=== PATIENT | female | born 1930 | race Caucasian/White ===

== ENCOUNTER 2019-07-25 17:28 | Inpatient (IN) | payer MEDICARE ==
[2019-07-25] MEDS ORDERED: IOVERSOL 320 100 ML VIAL IVP ONE (17:46)
--- NOTE | 2019-07-25 17:56 | ED Physician Documentation ---
PD HPI ALTERED MENTAL STATUS - Stated complaint Stated Complaint: LT FACIAL DROOPING,WORD FINDING DIFFICULTY - Chief complaint Chief Complaint: Neuro - History obtained from History obtained from: Patient, Family - History of Present Illness Timing - onset: Today Quality / character: Confused Associated symptoms: No: Fever, Headache, Stiff neck, Dyspnea, Cough Contributing factors: No: Anticoagulated Basline status: Alert and oriented X 3 - Additional information Additional information: Patient is an 89-year-old female who presents to the emergency department after being brought in by family today. When the family spoke to her on the phone approximately 1 hour prior to arrival. She was "talking gibberish" and not making any sense. She was last seen normal last night. She has a right-sided facial infection that she was started on clindamycin for 2 days ago. Family states that the redness and swelling have increased on the right side of the face and is now coming down the neck. Unknown if she has had any fevers. Patient unable to give any history. No history of stroke or TIA. Review of Systems Unable to obtain: AMS, Confused PD PAST MEDICAL HISTORY - Past Medical History Past Medical History: Yes Cardiovascular: Hypertension, High cholesterol - Allergies Allergies/Adverse Reactions: Allergies Allergy/AdvReac Type Severity Reaction Status Date / Time Penicillins Allergy Unknown Verified 07/25/19 17:32 - Living Situation Living Arrangement: reports: At home - Social History Does the pt smoke?: No Does the pt have substance abuse?: No - Family History Family history: reports: Non contributory PD ED PE NORMAL - Vitals Vital signs reviewed: Yes - General General: No acute distress, Well developed/nourished, Other (Alert, not oriented to person place or time) - HEENT HEENT: PERRL, Moist mucous membranes, Pharynx benign, Other (Erythema and swelling to the right side of the face going down the neck. No Ludewig's angina. Small palpable nodule to the right upper mandible.) - Neck Neck: Supple, no meningeal sign - Cardiac Cardiac: RRR - Respiratory Respiratory: No respiratory distress, Clear bilaterally - Abdomen Abdomen: Soft, Non tender, Non distended - Derm Derm: Warm and dry - Neuro Neuro: No motor deficit, No sensory deficit, Other (Alert) Eye Opening: Spontaneous Motor: Obeys Commands Verbal: Confused GCS Score: 14 - Psych Psych: Normal mood, Normal affect NIHSS - Time Time: 17:55 - Level of Consciousness Level of consciousness: (0) Alert, Keenly responsive LOC Questions: (2) Answers neither correct LOC Commands: (0) Performs both correctly - Gaze Best Gaze: (0) Normal - Visual Visual: (0) No loss - Facial Palsy Facial Palsy: (0) Normal, symmetrical movement - Motor Arms (both separate) Motor Arm (right): (0) No drift Motor Arm (left): (0) No drift - Motor Legs (both separate) Motor Leg (right): (0) No drift Motor Leg (left): (0) No drift - Limb Ataxia Limb Ataxia: (0) Absent - Sensory Sensory: (0) Normal - Best Language Best Language: (0) No aphasia - Dysarthria Dysarthria: (0) Normal - Extinction and Inattention (formally neg Extinction and inattention: (0) No abnormality - Total Score/Results Total Score/Result: 2 Results - Vitals Vitals: Vital Signs - 24 hr 07/25/19 07/25/19 07/25/19 17:33 18:13 18:30 Temperature 37.0 C 37.2 C Heart Rate 94 98 95 Respiratory 16 16 18 Rate Blood Pressure 192/82 H 155/102 H 167/81 H O2 Saturation 94 96 96 07/25/19 07/25/19 07/25/19 19:00 19:38 20:09 Temperature Heart Rate 102 H 91 94 Respiratory 28 H 15 15 Rate Blood Pressure 167/81 H 179/79 H 185/83 H O2 Saturation 96 96 94 07/25/19 20:41 Temperature Heart Rate 94 Respiratory 21 Rate Blood Pressure 185/79 H O2 Saturation 93 Oxygen O2 Source Room air - Labs Labs: Laboratory Tests 07/25/19 07/25/19 07/25/19 18:17 18:25 18:25 WBC 8.5 RBC 3.17 L Hgb 10.0 L Hct 31.2 L MCV 98.4 MCH 31.5 H MCHC 32.1 RDW 13.2 Plt Count 248 MPV 9.5 Neut # (Auto) 5.1 Lymph # (Auto) 1.7 [place] # (Auto) 1.2 H Eos # (Auto) 0.4 Baso # (Auto) 0.1 Absolute Nucleated RBC 0.00 Nucleated RBC % 0.0 PT 13.3 H INR 1.2 APTT 27.2 Sodium Potassium Chloride Carbon Dioxide Anion Gap BUN Creatinine Estimated GFR (MDRD) Glucose POC Whole Bld Glucose 103 H Lactic Acid Calcium Total Bilirubin AST ALT Alkaline Phosphatase Total Protein Albumin Globulin Albumin/Globulin Ratio Lipase Urine Color Urine Clarity Urine pH Ur Specific [place] Urine Protein Urine Glucose (UA) Urine Ketones Urine Occult Blood Urine Nitrite Urine Bilirubin Urine Urobilinogen Ur Leukocyte Esterase Urine RBC Urine WBC Urine WBC Clumps Ur Squamous Epith Cells Urine Bacteria Ur Microscopic Review Urine Culture Comments Salicylates Urine Opiates Screen Ur Oxycodone Screen Urine Methadone Screen Ur Propoxyphene Screen Acetaminophen Ur Barbiturates Screen Ur Tricyclics Screen Ur Phencyclidine Scrn Ur Amphetamine Screen U Methamphetamines Scrn U Benzodiazepines Scrn Urine Cocaine Screen U Cannabinoids Screen Ethyl Alcohol 07/25/19 07/25/19 07/25/19 18:25 18:25 19:04 WBC RBC Hgb Hct MCV MCH MCHC RDW Plt Count MPV Neut # (Auto) Lymph # (Auto) [place] # (Auto) Eos # (Auto) Baso # (Auto) Absolute Nucleated RBC Nucleated RBC % PT INR APTT Sodium 136 Potassium 3.9 Chloride 101 Carbon Dioxide 25 Anion Gap 10.0 BUN 25 H Creatinine 0.9 Estimated GFR (MDRD) 59 L Glucose 113 H POC Whole Bld Glucose Lactic Acid 0.9 Calcium 9.0 Total Bilirubin 0.7 AST 22 ALT 18 Alkaline Phosphatase 82 Total Protein 7.4 Albumin 3.7 Globulin 3.7 Albumin/Globulin Ratio 1.0 Lipase 37 Urine Color YELLOW Urine Clarity CLEAR Urine pH 7.0 Ur Specific [place] 1.010 Urine Protein NEGATIVE Urine Glucose (UA) NEGATIVE Urine Ketones NEGATIVE Urine Occult Blood SMALL H Urine Nitrite NEGATIVE Urine Bilirubin NEGATIVE Urine Urobilinogen 0.2 (NORMAL) Ur Leukocyte Esterase NEGATIVE Urine RBC 11-25 H Urine WBC 4-5 Urine WBC Clumps PRESENT Ur Squamous Epith Cells RARE Squamous Urine Bacteria Rare Ur Microscopic Review INDICATED Urine Culture Comments NOT INDICATED Salicylates < 6.0 Urine Opiates Screen NEGATIVE Ur Oxycodone Screen NEGATIVE Urine Methadone Screen NEGATIVE Ur Propoxyphene Screen NEGATIVE Acetaminophen < 10 L Ur Barbiturates Screen NEGATIVE Ur Tricyclics Screen NEGATIVE Ur Phencyclidine Scrn NEGATIVE Ur Amphetamine Screen NEGATIVE U Methamphetamines Scrn NEGATIVE U Benzodiazepines Scrn NEGATIVE Urine Cocaine Screen NEGATIVE U Cannabinoids Screen NEGATIVE Ethyl Alcohol < 5.0 - Rads (name of study) CT head Radiology: Prelim report reviewed, EMP read contemporaneously, See rad report (Generalized age-related cortical atrophic changes without evidence of acute intracranial abnormality. ASPECTS 10. ) CT maxillofacial Radiology: Prelim report reviewed, EMP read contemporaneously, See rad report (1. Rim-enhancing hypodense collection adjacent the right alveolar reach measuring 19 x 4.7 x 13.6 mm (series 3 image 62, series 5 image 24), concerning for soft tissue abscess. Mild overlying soft tissue edema and inflammatory change. 2. The soft tissue abscess is likely odontogenic, given periapical lucency associated with adjacent maxillary tooth #5 (series 5 image 28), concerning for periapical abscess. Maxillary teeth 6 and 11 bilateral impacted (series 5 image 21). ) CT angio head Radiology: Prelim report reviewed, EMP read contemporaneously, See rad report CT angiogram neck Radiology: Prelim report reviewed, EMP read contemporaneously, See rad report PD MEDICAL DECISION MAKING - ED course Complexity details: reviewed results, re-evaluated patient, considered differential, d/w patient, d/w pre owned sales consultant ED course: Patient with dental abscess with significant facial cellulitis extending down to the neck. Has been on antibiotics for 2 days and is steadily worsening. Now with altered mental status. Has a UTI as well. No focal neurological deficits. Discussed the case with neurology, they recommend starting aspirin daily and obtaining an MRI on Friday when it is available here. Discussed with Dr. Ochoa, neurology at [facility]. Also discussed the case with Dr. Lemus, oral maxillofacial surgery who will come to the hospital and see the patient for the dental infection and abscess. Discussed the case with Dr. Garcia, hospitalist who accepts. She will need admission for altered mental status, complicated UTI, failed outpatient oral antibiotics with worsening cellulitis of the face ex tending down to the clavicle on the right side. This document was made in part using voice recognition software. While efforts are made to proofread this document, sound alike and grammatical errors may occur. Departure - Departure Disposition: [facility] DC/Xfer Clinical Impression: Facial cellulitis, Dental abscess Altered mental status Qualifiers: Altered mental status type: disorientation Qualified Code(s): R41.0 - Disorientation, unspecified UTI (urinary tract infection) Qualifiers: Urinary tract infection type: acute cystitis Hematuria presence: without hematuria Qualified Code(s): N30.00 - Acute cystitis without hematuria Condition: Stable Discharge Date/Time: 07/25/19 21:30
--- NOTE | 2019-07-25 18:29 | CT Report ---
Reason: Neuro deficit, acute, stroke suspected Procedure Date: 07/25/2019 Accession Number: [id number] / [id number] Procedure: CT - Head W/O Stroke Protocol CPT Code: Addended Final Report FULL RESULT: EXAM: CT HEAD EXAM DATE: 07/25/2019 05:59 PM. CLINICAL HISTORY: 89-year-old female. Altered mental status right facial swelling. Neuro deficit, acute, stroke suspected. COMPARISON: None. TECHNIQUE: Multiaxial CT images were obtained from the foramen magnum to the vertex. Reformats: Sagittal and coronal. IV contrast: None. In accordance with CT protocol optimization, one or more of the following dose reduction techniques were utilized for this exam: automated exposure control, adjustment of mA and/or KV based on patient size, or use of iterative reconstructive technique. FINDINGS: Parenchyma: No intraparenchymal hemorrhage. No evidence of mass, midline shift, or CT findings of acute infarction. Villar-white differentiation is distinct. Diffuse chronic microangiopathic white matter changes are evident. Extraaxial Spaces: Normal for age. No subdural or epidural collections identified. Ventricles: The ventricles and cortical sulci are enlarged, consistent with age-related tissue loss. Sinuses and orbits: Imaged paranasal sinuses, orbits, and mastoids show no significant abnormality. Bones: No evidence of fracture or calvarial defect. Other: None. IMPRESSION: Generalized age-related cortical atrophic changes without evidence of acute intracranial abnormality. ASPECTS 10. RADIA The critical test notification system was initiated by Dr. Quentin Haro at 06:27 PM on 07/25/2019. ADDENDUM: 07/25/19 18:31 The above critical test findings were discussed with Luis Upton by Dr. Quentin Haro at 06:31 PM on 07/25/2019.
[2019-07-25 18:30] LABS: BASOPHILS # (AUTO) 0.1 10^3/uL (0.0-0.1); BASOPHILS % (AUTO) 1.1 %; EOSINOPHILS # (AUTO) 0.4 10^3/uL (0.0-0.7); EOSINOPHILS % (AUTO) 4.2 %; LYMPHOCYTES # (AUTO) 1.7 10^3/uL (1.5-3.5); LYMPHOCYTES % (AUTO) 20.3 %; MEAN CORPUSCULAR HEMOGLOBIN 31.5 pg (27.0-31.0); MEAN CORPUSCULAR HGB CONC 32.1 g/dL (32.0-36.0); MEAN CORPUSCULAR VOLUME 98.4 fL (81.0-99.0); MEAN PLATELET VOLUME 9.5 fL (7.9-10.8); MONOCYTES # (AUTO) 1.2 10^3/uL (0.0-1.0); MONOCYTES % (AUTO) 13.9 %; NEUTROPHILS # (AUTO) 5.1 10^3/uL (1.5-6.6); NEUTROPHILS % (AUTO) 59.8 %; PLT - PLATELET COUNT 248 10^3/uL (130-450); RED BLOOD COUNT 3.17 10^6/uL (4.20-5.40); RED CELL DISTRIBUTION WIDTH 13.2 % (12.0-15.0); WHITE BLOOD COUNT 8.5 x10^3/uL (4.8-10.8)
[2019-07-25 18:36] LABS: INR 1.2 (0.8-1.2); PT - PROTHROMBIN TIME 13.3 secs (9.9-12.6)
[2019-07-25 18:43] LABS: PARTIAL THROMBOPLASTIN TIME 27.2 secs (24.9-33.3)
[2019-07-25 18:44] LABS: ACETAMINOPHEN < 10 ug/mL (10-30); ALBUMIN 3.7 g/dL (3.2-5.5); ALKALINE PHOSPHATASE 82 IU/L (42-121); ALT ALANINE AMINOTRANSFERASE 18 IU/L (10-60); AST ASPARTATE AMINOTRANSFERASE 22 IU/L (10-42); BILIRUBIN,TOTAL 0.7 mg/dL (0.2-1.0); BUN - BLOOD UREA NITROGEN 25 mg/dL (6-20); CARBON DIOXIDE - CO2 25 mmol/L (21-32); CHLORIDE 101 mmol/L (101-111); CREATININE 0.9 mg/dL (0.4-1.0); GLUCOSE 113 mg/dL (70-100); LIPASE 37 U/L (22-51); SALICYLATE < 6.0 mg/dL; SODIUM 136 mmol/L (135-145); TOTAL PROTEIN 7.4 g/dL (6.7-8.2)
--- NOTE | 2019-07-25 18:49 | CT Report ---
Reason: R facial swelling Procedure Date: 07/25/2019 Accession Number: [id number] / [id number] Procedure: CT - MAXILLOFACIAL W CPT Code: Final Report FULL RESULT: EXAM: CT MAXILLOFACIAL WITH CONTRAST EXAM DATE: 07/25/2019 06:24 PM. CLINICAL HISTORY: 89-year-old female. R facial swelling. COMPARISONS: None. TECHNIQUE: Thin-section axial images were acquired of the face after administration of intravenous contrast. Post-processing: Coronal and sagittal reformats. Other: None. IV contrast: 80 mL OPTIRAY 320. In accordance with CT protocol optimization, one or more of the following dose reduction techniques were utilized for this exam: automated exposure control, adjustment of mA and/or KV based on patient size, or use of iterative reconstructive technique. FINDINGS: Soft Tissue: Rim-enhancing hypodense collection adjacent the right alveolar reach measuring 19 x 4.7 x 13.6 mm (series 3 image 62, series 5 image 24), concerning for soft tissue abscess. Mild overlying soft tissue edema and inflammatory change. No soft tissue mass. The infratemporal fossa and parapharyngeal spaces are unremarkable. Orbits: Status post bilateral lens replacement surgery. The visualized orbits otherwise unremarkable. Bones: No evidence of acute fracture. Maxillary teeth 6 and 11 bilateral impacted (series 5 image 21). Periapical lucency associated with maxillary tooth #5 (series 5 image 28), concerning for periapical abscess. Temporomandibular Joints: The temporomandibular joints are symmetric and normally located. Sinuses: Normal. No mucosal thickening or fluid levels. Glands: The parotid and submandibular glands are unremarkable. Other: None. IMPRESSION: 1. Rim-enhancing hypodense collection adjacent the right alveolar reach measuring 19 x 4.7 x 13.6 mm (series 3 image 62, series 5 image 24), concerning for soft tissue abscess. Mild overlying soft tissue edema and inflammatory change. 2. The soft tissue abscess is likely odontogenic, given periapical lucency associated with adjacent maxillary tooth #5 (series 5 image 28), concerning for periapical abscess. Maxillary teeth 6 and 11 bilateral impacted (series 5 image 21). RADIA
--- NOTE | 2019-07-25 19:02 | CT Report ---
Reason: altered mental status Procedure Date: 07/25/2019 Accession Number: [id number] / [id number] Procedure: CT - ANGIO HEAD W/WO CPT Code: Final Report FULL RESULT: EXAM: CT ANGIOGRAM HEAD AND NECK. CT SCAN HEAD WITH CONTRAST. EXAM DATE: 07/25/2019 06:21 PM. CLINICAL HISTORY: Altered mental status. COMPARISON: ANGIO NECK W 07/25/2019 5:59 PM. TECHNIQUE: Routine axial helical CTA imaging was performed from the aortic arch through the [place]. Routine axial CT imaging of the head was performed following contrast administration. Reconstructions: Routine multiplanar 3D MIP reconstructions. IV contrast: 80 mL OPTIRAY 320. NASCET Criteria are used for stenosis measurements. In accordance with CT protocol optimization, one or more of the following dose reduction techniques were utilized for this exam: automated exposure control, adjustment of mA and/or KV based on patient size, or use of iterative reconstructive technique. FINDINGS: CT SCAN HEAD: Noncontrast CT head dictated separately. No abnormal enhancement on the postcontrast CT head. CT ANGIOGRAM EXTRACRANIAL CIRCULATION: Moderate atherosclerosis aortic arch, no hemodynamically significant narrowing. 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 Right Carotid: The common carotid, internal carotid, and external carotid arteries are widely patent. No dissection, significant atherosclerotic plaque, or calcification identified. Partially retropharyngeal course of the cervical right ICA. Left Carotid: Mild atherosclerosis left carotid bifurcation, no hemodynamically significant narrowing. The common carotid, internal carotid, and external carotid arteries are widely patent. No dissection, significant atherosclerotic plaque, or calcification identified. Vertebrals: Focal atherosclerosis V4 segments of the vertebral arteries bilaterally, maximal narrowing approximately 30-40%. The proximal V2 segment of the right vertebral artery is tortuous and somewhat irregular in contour. The vertebrobasilar system is otherwise unremarkable. CT ANGIOGRAM INTRACRANIAL CIRCULATION: RIGHT: Internal Carotid artery: Moderate atherosclerosis right carotid siphon, maximal narrowing approximately 50%. Anterior Cerebral Artery: Patent without significant stenosis, aneurysm, or vascular malformation. Middle Cerebral Artery: Patent without significant stenosis, aneurysm, or vascular malformation. Posterior Cerebral Artery: Patent without significant stenosis, aneurysm, or vascular malformation. Posterior Communicating Artery: Patent without significant stenosis, aneurysm, or vascular malformation. LEFT: Internal Carotid artery: Moderate atherosclerosis left carotid siphon, maximal narrowing approximately 50%. Anterior Cerebral Artery: Patent without significant stenosis, aneurysm, or vascular malformation. Middle Cerebral Artery: Patent without significant stenosis, aneurysm, or vascular malformation. Posterior Cerebral Artery: Patent without significant stenosis, aneurysm, or vascular malformation. Posterior Communicating Artery: Patent without significant stenosis, aneurysm, or vascular malformation. CENTRAL: Anterior Communicating Artery: Patent. No aneurysm. The dural venous sinuses are patent. Other: The visualized lung apices are clear. Mild to moderate multilevel degenerative spondylosis, no acute fracture or traumatic subluxation. The visualized soft tissues of the neck demonstrate no acute abnormality. IMPRESSION: CT HEAD: 1. Noncontrast CT head dictated separately. 2. No abnormal enhancement on the postcontrast CT head. CTA NECK: 1. No CTA evidence of high-grade stenosis, large vessel occlusion, acute dissection, aneurysm, or vascular malformation within extracranial arteries. 2. 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 3. Focal atherosclerosis V4 segments of the vertebral arteries bilaterally, maximal narrowing approximately 30-40%. 4. The proximal V2 segment of the right vertebral artery is tortuous and somewhat irregular in contour. This is nonspecific for sequela of atherosclerosis versus age-indeterminate nonocclusive dissection. CTA HEAD: 1. No CTA evidence of high-grade stenosis, large vessel occlusion, aneurysm, or vascular malformation within intracranial arteries. 2. Moderate atherosclerosis right carotid siphon, maximal narrowing approximately 50%. 3. Moderate atherosclerosis left carotid siphon, maximal narrowing approximately 50%. OTHER: 1. No other acute findings. RADIA
[2019-07-25 19:15] LABS: MUDS CUTOFF CONCENTRATIONS CUTOFF CONC BELOW:
[2019-07-25 19:16] LABS: BILIRUBIN,URINE NEGATIVE (NEGATIVE); GLUCOSE, URINE (UA) NEGATIVE (NEGATIVE); KETONES,URINE (UA) NEGATIVE (NEGATIVE); LEUKOCYTE ESTERASE, URINE NEGATIVE (NEGATIVE); NITRITE,URINE NEGATIVE (NEGATIVE); OCCULT BLOOD,URINE SMALL (NEGATIVE); PROTEIN,URINE NEGATIVE (NEGATIVE); UROBILINOGEN,URINE 0.2 (NORMAL) E.U./dL (NORMAL)
[2019-07-25 19:32] LABS: CLARITY,URINE CLEAR (CLEAR)
[2019-07-25 19:33] LABS: BACTERIA,URINE Rare /HPF (None Seen); SQUAMOUS EPITHELIAL CELL,UR RARE Squamous (<= Few); WBC CLUMPS,URINE PRESENT
[2019-07-25] MEDS ORDERED: cefTRIAXone 1 GM VIAL IVP STA (19:34)
[2019-07-25 19:39] LABS: AMPHETAMINE SCREEN,URINE NEGATIVE (NEGATIVE); BENZODIAZEPINES SCREEN, URINE NEGATIVE (NEGATIVE); COCAINE SCREEN URINE NEGATIVE (NEGATIVE); METHADONE SCREEN, URINE NEGATIVE (NEGATIVE); METHAMPHETAMINES SCREEN, URINE NEGATIVE (NEGATIVE); OPIATE SCREEN, URINE NEGATIVE (NEGATIVE); OXYCODONE SCREEN, URINE NEGATIVE (NEGATIVE); PROPOXYPHENE SCREEN, URINE NEGATIVE (NEGATIVE); TRICYCLIC ANTIDEPRESSANT,URINE NEGATIVE (NEGATIVE)
[2019-07-25] MEDS ORDERED: ACETAMINOPHEN 325 MG TABLET PO PRN (21:05)
[2019-07-25] MEDS ORDERED: SODIUM CHLORIDE FLUSH 0.9% 10 ML SYRINGE IVP PRN (21:05)
--- NOTE | 2019-07-25 21:25 | HISTORY & PHYSICAL EXAMINATION ---
Chief Complaint - Chief Complaint Chief Complaint: alteremental status, worsening rednes on right-reese eof face to neck History of Present Illness - Admitted From Admitted From:: [facility] ED - History Obtained From Records Reviewed: yes History obtained from: patient's daughter Exam Limitations: altered mental status - History of Present Illness HPI Comment/Other: Patient is an 89-year-old female who was brought to the ED for altered mental status. The history was mainly obtained from her daughter. Her daughter explains that around 4:30 PM this afternoon she received a call from the patient. During the conversation her words were not making sense. She was babbling and appeared confused. It also seemed the patient was not understanding what her daughter was saying. Upon presentation to the ED the patient had redness on the right side of her face which extended down to the clavicle on the right. She had seen her dentist Rosangela Stubbs on Friday and was prescribed clindamycin for a potential dental abscess. There was nothing drainable at the time. By the time the patient presented to the ED she had taken a total of 4 doses of the clindamycin. On Friday the redness was localized to the right jaw only. Despite being on clindamycin the redness has progressed down to her clavicle on the right side. Though she is fully awake, alert and appears comfortable, she is not able to follow any commands. She is able to tell me her name but does not seem to recognize her daughter at bedside. Work-up in the ED included a CT of the head and neck which suggested a dental abscess. Dr. Lemus with oral surgery was consulted and would see the patient for possible drainage. As a result of her presentation she is being admitted for further work-up and treatment. 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 Daughter2: prediabetic Living arrangement: At home Living Situation: Alone - POLST Patient has POLST: No POLST Status: Full Code Meds/Allgy - Allergies Allergies/Adverse Reactions: Allergies Allergy/AdvReac Type Severity Reaction Status Date / Time Penicillins Allergy Unknown Verified 07/25/19 17:32 Review of Systems - Constitutional Constitutional: denies: Fatigue, Fever, Chills, Weakness - Eyes Eyes: denies: Pain, Vision loss, Dipolpia - Ears, Nose & Throat Ears, Nose & Throat: denies: Vertigo - Cardiovascular Cariovascular: denies: Irregular heart rate, Palpitations, Chest pain, Edema, Lightheadedness, Syncope - Respiratory Respiratory: denies: Cough, Sputum production, Wheezing, SOB at rest, SOB with exertion - Gastrointestinal Gastrointestinal: denies: Abdominal pain, Constipation, Diarrhea, Nausea, Vomiting - Genitourinary Genitourinary: denies: Dysuria, Urgency, Hematuria - Musculoskeletal Musculoskeletal: denies: Muscle pain, Back pain, Muscle aches, Stiffness - Integumentary Integumentary: reports: Rash - Neurological Neurological: denies: General weakness, Focal weakness, Headache, Dizziness - Psychiatric Psychiatric: reports: Anxiety - Endocrine Endocrine: denies: Polyuria, Polydypsia - Hematologic/Lymphatic Hematologic/Lymphatic: denies: Anemia, Bruising, Petechiae Prior Level of Functionality: Patient lives alone. Her daughter lives nearby and assists with preparing meals and with personal cares like showers. Exam - Vital Signs Vital Signs: Vital Signs x48h Temp Pulse Resp BP Pulse Ox 07/25/19 20:41 94 21 185/79 H 93 07/25/19 20:09 94 15 185/83 H 94 07/25/19 19:38 91 15 179/79 H 96 07/25/19 19:00 102 H 28 H 167/81 H 96 07/25/19 18:30 95 18 167/81 H 96 07/25/19 18:13 37.2 C 98 16 155/102 H 96 07/25/19 17:33 37.0 C 94 16 192/82 H 94 - Physical Exam General Appearance: positive: Alert, Mild distress, Other (oriented to self. not able to follow commands. Speech unintelligible.) Eyes Bilateral: positive: PERRL, EOMI ENT: positive: Other (redness from the right jaw don to clavicle) Neck: positive: No JVD, Trachea midline, Other (redness on right side of neck) Respiratory: positive: Chest non-tender, No respiratory distress, Breath sounds nml. negative: Wheezes, Rales, Rhonchi Cardiovascular: positive: Regular rate & rhythm. negative: No murmur Abdomen: positive: Non-tender, No organomegaly, Nml bowel sounds, No distention. negative: Guarding, Rebound Back: positive: Nml inspection Skin: positive: Other (redness on right side of jaw down to the clavicle) Extremities: positive: Non-tender, Full ROM, Nml appearance, No pedal edema Neurologic/Psychiatric: positive: Mood/affect nml, Other (oriented to seelf speech unintelligible) Conclusion/Plan - Problem List (1) Facial cellulitis Conclusion/Plan: This is likely related to dental abscess. Cellulitis progressed from right jaw down to the clavicle despite oral clindamycin. Patient was given a dose of Rocephin in the ED. We will start patient on IV vancomycin and IV clindamycin. Blood cultures pending (2) Dental abscess Conclusion/Plan: Dr. Lemus was consulted and will see the patient for possible drainage how are you (3) Altered mental status Conclusion/Plan: Cannot rule out a CVA. CT brain, CT angiogram head and neck were unremarkable for any acute process. We will do an MRI of the brain without contrast and 2D echo when available. Qualifiers: Altered mental status type: disorientation Qualified Code(s): R41.0 - Disorientation, unspecified (4) Hypertension Conclusion/Plan: On losartan. Will resume once verified. (5) Hyperlipidemia Conclusion/Plan: Patient takes simvastatin at home.Will place patient on atorvastatin while in the hospital. Check lipid panel (6) Hypothyroidism Conclusion/Plan: Will resume patient's Synthroid at home dose. - Lab Results Fish Bones: 07/26/19 05:37 07/26/19 05:37 Core Measures - Anticipated LOS I expect patient to be DC'd or transferred within 96 hours.: Yes - DVT/VTE - Prophylaxis VTE/DVT Device ordered at admit?: Yes
[2019-07-25] MEDS ORDERED: VANCOMYCIN INJ 1 GM in SODIUM CHLORIDE 0.9% 250 ML IV SCH (22:00)
--- NOTE | 2019-07-25 22:51 | CONSULTATION NOTE ---
Referring Provider Name of Referring Provider:: Luis Upton Consult Date: 07/25/19 Chief Complaint - Chief Complaint Chief Complaint: Facial swelling History of Present Illness - Admitted From Admitted From:: ER - History Obtained From Records Reviewed: Yes Exam Limitations: Mental status change - History of Present Illness HPI Comment/Other: Jen is an 89 year old female who was brought to the ER by her daughter because of acute mental status change. On Friday she was seen by Dr. Radha Klein, her dentist, for a tooth in the maxillary right. At that appointment she was given an Rx for clindamycin. She has been taking the clindamycin as scheduled. Her daughter reports that her swelling has improved since yesterday, but she brought her in because today she had an acute change in her mental status, being unable to understand people and unable to speak in full sentences. The ER physician, Dr. Upton, noted that she had erythema of the R infraorbital skin all the way down to the skin overlying the thyroid cartilage. A max/face CT demonstated a radiolucency associated with tooth #5 and an adjacent soft tissue abscess. I was consulted for evaluation and management of this abscess. 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 Daughter2: prediabetic Living arrangement: At home Living Situation: Alone - POLST Patient has POLST: No POLST Status: Full Code Meds/Allgy - Allergies Allergies/Adverse Reactions: Allergies Allergy/AdvReac Type Severity Reaction Status Date / Time Penicillins Allergy Unknown Verified 07/25/19 17:32 Exam - Vital Signs Vital Signs: Vital Signs x48h Temp Pulse Pulse Resp BP BP Pulse Ox 05/24/20 21:48 36.8 C 97 20 152/89 H 94 07/25/19 20:41 94 21 185/79 H 93 07/25/19 20:09 94 15 185/83 H 94 07/25/19 19:38 91 15 179/79 H 96 07/25/19 19:00 102 H 28 H 167/81 H 96 07/25/19 18:30 95 18 167/81 H 96 07/25/19 18:13 37.2 C 98 16 155/102 H 96 07/25/19 17:33 37.0 C 94 16 192/82 H 94 - Physical Exam General Appearance: positive: Mild distress, Anxious ENT: positive: Other (Completely unable to cooperate with exam due to mental status change. ELEONORA wnl. No withdrawal when the R face and neck were palpated. Moderate swelling of the R canine space There is a fluctuant swelling of the R maxillary vestibule that is open and draining spontaneously. A small amount of purulence is present.) Neck: positive: Other (Mild erythema of the R infraorbital skin extending inferiorly onto the neck. No swellig of the submental or submandibular spp. The erythema does not extend onto the chest.) Conclusion/Plan - Diagnosis Diagnosis: Cellulitis and abscess of the R canine space extending onto the R neck - Plan Plan: I attempted bedside incision and drainage. She was unable to tolerate the procedure and withdrew, being confused about what was happening. Thankfully, the abscess is already spontaneously draining. Recommend monitoring her response to IV antibiotics. If she improves significantly, she can follow up with Dr. Guido Alicea for definitive management of her infection. She already intends to make these arrangements. If she does not demonstrate decreased swelling and erythema after IV antibiotics, consider changing antibiotics to a third generation cephalosporin or to Levaquin. I will check in tomorrow regarding her progress. She may need another attempt at I&D while in house if she is progressing slowly. Unless she has increased mental clarity at that time, it will be necessary to give her IV sedation to facilitate cooperation. Thank you for including me in the care of Jen. Please call with any questions. Hung Lemus DDS [phone] - Lab Results Fish Bones: 07/25/19 18:25 07/25/19 18:25
[2019-07-25] MEDS: VANCOMYCIN INJ 1 GM in SODIUM CHLORIDE 0.9% 250 ML IV SCH (22:54)
[2019-07-25] MEDS ORDERED: metroNIDAZOLE 500 MG/100 ML 500 MG/100 ML BAG IV SCH (23:00)
[2019-07-25] MEDS ORDERED: SODIUM CHLORIDE 0.9% 0 ML ONE (23:36)
[2019-07-26] MEDS ORDERED: CLINDAMYCIN 600 MG/50 ML 50 ML IV SCH
[2019-07-26] MEDS: CLINDAMYCIN 600 MG/50 ML 50 ML IV SCH ×4 (00:13→17:06)
[2019-07-26] MEDS: SODIUM CHLORIDE 0.9% 1,000 ML IV SCH ×3 (00:14→22:24)
[2019-07-26] MEDS: SODIUM CHLORIDE FLUSH 0.9% 10 ML SYRINGE IVP SCH ×3 (00:50→17:07)
[2019-07-26 06:07] LABS: BASOPHILS # (AUTO) 0.1 10^3/uL (0.0-0.1); BASOPHILS % (AUTO) 1.4 %; EOSINOPHILS # (AUTO) 0.1 10^3/uL (0.0-0.7); EOSINOPHILS % (AUTO) 1.7 %; HGB - HEMOGLOBIN 9.1 g/dL (12.0-16.0); LYMPHOCYTES # (AUTO) 1.7 10^3/uL (1.5-3.5); LYMPHOCYTES % (AUTO) 22.2 %; MEAN CORPUSCULAR HGB CONC 31.1 g/dL (32.0-36.0); MEAN CORPUSCULAR VOLUME 96.7 fL (81.0-99.0); MEAN PLATELET VOLUME 9.9 fL (7.9-10.8); MONOCYTES # (AUTO) 0.9 10^3/uL (0.0-1.0); MONOCYTES % (AUTO) 11.4 %; NEUTROPHILS # (AUTO) 4.8 10^3/uL (1.5-6.6); NEUTROPHILS % (AUTO) 62.7 %; PLT - PLATELET COUNT 243 10^3/uL (130-450); RED BLOOD COUNT 3.03 10^6/uL (4.20-5.40); RED CELL DISTRIBUTION WIDTH 13.2 % (12.0-15.0); WHITE BLOOD COUNT 7.7 x10^3/uL (4.8-10.8)
[2019-07-26 06:18] LABS: CALCIUM 8.4 mg/dL (8.5-10.3)
[2019-07-26 06:21] LABS: HB2 TOTAL 9.8 g/dL; HEMOGLOBIN A1C 0.49 g/dL; HEMOGLOBIN A1C % 6.7 % (4.6-6.2)
[2019-07-26] MEDS: LEVOTHYROXINE 88 MCG TABLET PO SCH (06:24)
[2019-07-26 06:27] LABS: CHOL/HDL RATIO 2.1 (<4.4); CHOLESTEROL 117 mg/dL; HDL CHOLESTEROL 56 mg/dL; LDL CHOLESTEROL,CALCULATED 48 mg/dL; LDL/HDL RATIO 0.9 (<4.4); VLDL CHOLESTEROL 13 mg/dL
--- NOTE | 2019-07-26 08:28 | PROVIDER PROGRESS NOTE ---
Assessment/Plan - Problem List (1) Sepsis Assessment/Plan: Patient has a persistent fever over 38 degrees C, is tachycardic and an infection, dental, facial cellulitis, which is spreading to the neck. Continue with broad-spectrum antibiotics, iv fluids, [id number] management by Dr Lemus. (2) Facial cellulitis Assessment/Plan: She still has a fever today. Will obtain blood cultures again. Watch the redness outlined area. Continue broad-spectrum IV antibiotics. Await culture results. (3) Dental abscess Assessment/Plan: She still has a fever today. Dr. Lemus input appreciated and he is following along. We will obtain blood cultures. Continue broad-spectrum IV antibiotics. Await culture results. (4) Altered mental status Qualifiers: Altered mental status type: disorientation Qualified Code(s): R41.0 - Disorientation, unspecified Assessment/Plan: She has now had confusion and garbled speech and been altered in mental status for over 12 hours. Stroke was evaluated for by CT of the head yesterday, was neg. Await MRI of the brain (this is not available here until Friday, today is Friday). Watch for nuchal rigidity, concern for spread of the dental and facial infection to her sinuses and CSF, which would warrant a spinal tap (by Anesthesia). Continue hydration, while altered and with a fever. (5) Hypertension Assessment/Plan: Her blood pressure med's will be resumed, with hold orders if blood pressure is low. (6) Hypothyroidism Assessment/Plan: Check TSH. Resume home thyroid dosing, adjust if needed based on TSH. (7) Hyperlipidemia Assessment/Plan: We will hold her statin medication currently because of the altered mental status. - Current Meds Current Meds: Current Medications Generic Name Dose Route Start Last Admin Trade Name Freq PRN Reason Stop Dose Admin Acetaminophen 650 mg 07/25/19 21:05 07/26/19 00:00 Tylenol PO 650 mg Q6HR PRN Administration Pain 1 to 4 Clindamycin Phosphate 50 mls @ 100 mls/hr 07/26/19 00:00 07/26/19 06:21 Cleocin 600 Mg/50 Ml IV 50 mls/hr Q6HR LYNNE Administration Vancomycin HCl 1 gm/ Sodium 250 mls @ 167 mls/hr 07/25/19 22:00 07/26/19 00:24 Chloride IV Infused Q36H LYNNE Infusion Sodium Chloride 1,000 mls @ 100 mls/hr 07/25/19 23:45 07/26/19 00:14 Normal Saline 0.9% IV 100 mls/hr .Q10H LYNNE Administration Levothyroxine Sodium 88 mcg 07/26/19 07:00 07/26/19 06:24 Synthroid PO 88 mcg QDAC LYNNE Administration Sodium Chloride 10 ml 07/26/19 01:00 07/26/19 00:50 Normal Saline Flush 0.9% IVP Not Given 0100,0900,1700 LYNNE - Lab Result Fish Bone Diagrams: 07/26/19 05:37 07/26/19 05:37 Subjective - Subjective Patient Reports: Resting Comfortably Nursing Reports: Other (Still confused, per RN) Objective Vital Signs: Vital Signs - 24 hr 07/25/19 07/25/19 07/25/19 17:33 18:13 18:30 Temperature 37.0 C 37.2 C Heart Rate 94 98 95 Heart Rate [ Brachial] Respiratory 16 16 18 Rate Blood Pressure 192/82 H 155/102 H 167/81 H Blood Pressure [Left Brachial artery] O2 Saturation 94 96 96 07/25/19 07/25/19 07/25/19 19:00 19:38 20:09 Temperature Heart Rate 102 H 91 94 Heart Rate [ Brachial] Respiratory 28 H 15 15 Rate Blood Pressure 167/81 H 179/79 H 185/83 H Blood Pressure [Left Brachial artery] O2 Saturation 96 96 94 07/25/19 07/25/19 07/25/19 20:41 21:48 23:49 Temperature 36.8 C 38.3 C H Heart Rate 94 Heart Rate [ 97 109 H Brachial] Respiratory 21 20 20 Rate Blood Pressure 185/79 H Blood Pressure 152/89 H 174/84 H [Left Brachial artery] O2 Saturation 93 94 95 07/26/19 07/26/19 01:27 04:37 Temperature 37.9 C H 38.1 C H Heart Rate Heart Rate [ 109 H Brachial] Respiratory 20 Rate Blood Pressure Blood Pressure 154/66 H [Left Brachial artery] O2 Saturation 94 Oxygen O2 Source Room air I&O (Last 24 Hrs): Intake and Output Totals x24h 07/24/19 07/25/19 07/26/19 23:59 23:59 23:59 Intake Total 200 400 Output Total 500 Balance 200 -100 General: Other (Appears fatigued) HEENT: Other (minimal swelling and decreased pink-red area on R neck (outlined by RN this morning)) Neck: Supple, Other (As described in HEENT) Neuro: Disoriented Cardiovascular: Regular rate, No murmurs Respiratory: No respiratory distress, Breath sounds nml Abdomen: Soft Extremities: No edema - Results Results: Laboratory Results WBC 7.7 x10^3/uL (4.8-10.8) 07/26/19 05:37 RBC 3.03 10^6/uL (4.20-5.40) L 07/26/19 05:37 Hgb 9.1 g/dL (12.0-16.0) L 07/26/19 05:37 Hct 29.3 % (37.0-47.0) L 07/26/19 05:37 MCV 96.7 fL (81.0-99.0) 07/26/19 05:37 MCH 30.0 pg (27.0-31.0) 07/26/19 05:37 MCHC 31.1 g/dL (32.0-36.0) L 07/26/19 05:37 RDW 13.2 % (12.0-15.0) 07/26/19 05:37 Plt Count 243 10^3/uL (130-450) 07/26/19 05:37 MPV 9.9 fL (7.9-10.8) 07/26/19 05:37 Neut # (Auto) 4.8 10^3/uL (1.5-6.6) 07/26/19 05:37 Lymph # (Auto) 1.7 10^3/uL (1.5-3.5) 07/26/19 05:37 [place] # (Auto) 0.9 10^3/uL (0.0-1.0) 07/26/19 05:37 Eos # (Auto) 0.1 10^3/uL (0.0-0.7) 07/26/19 05:37 Baso # (Auto) 0.1 10^3/uL (0.0-0.1) 07/26/19 05:37 Absolute Nucleated RBC 0.00 x10^3/uL 07/26/19 05:37 Nucleated RBC % 0.0 /100WBC 07/26/19 05:37 PT 13.3 secs (9.9-12.6) H 07/25/19 18:25 INR 1.2 (0.8-1.2) 07/25/19 18:25 APTT 27.2 secs (24.9-33.3) 07/25/19 18:25 Sodium 134 mmol/L (135-145) L 07/26/19 05:37 Potassium 3.7 mmol/L (3.5-5.0) 07/26/19 05:37 Chloride 100 mmol/L (101-111) L 07/26/19 05:37 Carbon Dioxide 25 mmol/L (21-32) 07/26/19 05:37 Anion Gap 9.0 (6-13) 07/26/19 05:37 BUN 21 mg/dL (6-20) H 07/26/19 05:37 Creatinine 1.0 mg/dL (0.4-1.0) 07/26/19 05:37 Estimated GFR (MDRD) 52 (>89) L 07/26/19 05:37 Glucose 123 mg/dL (70-100) H 07/26/19 05:37 POC Whole Bld Glucose 103 mg/dL (70 - 100) H 07/25/19 18:17 Glycated Hemoglobin 6.7 % (4.6-6.2) H 07/26/19 05:37 Estim Average Glucose 146 (70-100) H 07/26/19 05:37 Lactic Acid 0.8 mmol/L (0.5-2.2) 07/26/19 00:00 Calcium 8.4 mg/dL (8.5-10.3) L 07/26/19 05:37 Total Bilirubin 0.7 mg/dL (0.2-1.0) 07/25/19 18:25 AST 22 IU/L (10-42) 07/25/19 18:25 ALT 18 IU/L (10-60) 07/25/19 18:25 Alkaline Phosphatase 82 IU/L (42-121) 07/25/19 18:25 Total Protein 7.4 g/dL (6.7-8.2) 07/25/19 18:25 Albumin 3.7 g/dL (3.2-5.5) 07/25/19 18:25 Globulin 3.7 g/dL (2.1-4.2) 07/25/19 18:25 Albumin/Globulin Ratio 1.0 (1.0-2.2) 07/25/19 18:25 Triglycerides 66 mg/dL (-149) 07/26/19 05:37 Cholesterol 117 mg/dL (-199) 07/26/19 05:37 LDL Cholesterol, Calc 48 mg/dL (-129) 07/26/19 05:37 VLDL Cholesterol 13 mg/dL 07/26/19 05:37 HDL Cholesterol 56 mg/dL (60-) L 07/26/19 05:37 LDL/HDL Ratio 0.9 (<4.4) 07/26/19 05:37 Cholesterol/HDL Ratio 2.1 (<4.4) 07/26/19 05:37 Lipase 37 U/L (22-51) 07/25/19 18:25 Urine Color YELLOW 07/25/19 19:04 Urine Clarity CLEAR (CLEAR) 07/25/19 19:04 Urine pH 7.0 PH (5.0-7.5) 07/25/19 19:04 Ur Specific [place] 1.010 (1.002-1.030) 07/25/19 19:04 Urine Protein NEGATIVE mg/dL (NEGATIVE) 07/25/19 19:04 Urine Glucose (UA) NEGATIVE mg/dL (NEGATIVE) 07/25/19 19:04 Urine Ketones NEGATIVE mg/dL (NEGATIVE) 07/25/19 19:04 Urine Occult Blood SMALL (NEGATIVE) H 07/25/19 19:04 Urine Nitrite NEGATIVE (NEGATIVE) 07/25/19 19:04 Urine Bilirubin NEGATIVE (NEGATIVE) 07/25/19 19:04 Urine Urobilinogen 0.2 (NORMAL) E.U./dL (NORMAL) 07/25/19 19:04 Ur Leukocyte Esterase NEGATIVE (NEGATIVE) 07/25/19 19:04 Urine RBC 11-25 /HPF (0-5) H 07/25/19 19:04 Urine WBC 4-5 /HPF (0-5) 07/25/19 19:04 Urine WBC Clumps PRESENT 07/25/19 19:04 Ur Squamous Epith Cells RARE Squamous (<= Few) 07/25/19 19:04 Urine Bacteria Rare /HPF (None Seen) 07/25/19 19:04 Ur Microscopic Review INDICATED 07/25/19 19:04 Urine Culture Comments NOT INDICATED 07/25/19 19:04 Salicylates < 6.0 mg/dL 07/25/19 18:25 Urine Opiates Screen NEGATIVE (NEGATIVE) 07/25/19 19:04 Ur Oxycodone Screen NEGATIVE (NEGATIVE) 07/25/19 19:04 Urine Methadone Screen NEGATIVE (NEGATIVE) 07/25/19 19:04 Ur Propoxyphene Screen NEGATIVE (NEGATIVE) 07/25/19 19:04 Acetaminophen < 10 ug/mL (10-30) L 07/25/19 18:25 Ur Barbiturates Screen NEGATIVE (NEGATIVE) 07/25/19 19:04 Ur Tricyclics Screen NEGATIVE (NEGATIVE) 07/25/19 19:04 Ur Phencyclidine Scrn NEGATIVE (NEGATIVE) 07/25/19 19:04 Ur Amphetamine Screen NEGATIVE (NEGATIVE) 07/25/19 19:04 U Methamphetamines Scrn NEGATIVE (NEGATIVE) 07/25/19 19:04 U Benzodiazepines Scrn NEGATIVE (NEGATIVE) 07/25/19 19:04 Urine Cocaine Screen NEGATIVE (NEGATIVE) 07/25/19 19:04 U Cannabinoids Screen NEGATIVE (NEGATIVE) 07/25/19 19:04 Ethyl Alcohol < 5.0 mg/dL 07/25/19 18:25
[2019-07-26] MEDS: cefTRIAXone 1 GM in SODIUM CHLORIDE 0.9% MINIBAG 100 ML IV SCH (08:29)
[2019-07-26] MEDS: LOSARTAN 50 MG TABLET PO SCH (08:29)
[2019-07-26] MEDS ORDERED: ACETAMINOPHEN 325 MG TABLET PO PRN (08:34)
--- NOTE | 2019-07-26 11:28 | PHARMACY PROGRESS NOTE ---
- Best Possible Medication History Admit Date and Time: 07/25/192104 Processed by: Pharmacy Medication History completed: Yes Patient Interview: Pt unable to participate Secondary Source(s): Spouse/Significant other, Pharmacy records, Insurance re cords As the person ultimately responsible for medication therapy, providers are able to order a medication from an existing home medication list in [facility] via the "Reconcile Routine" prior to Confirmation of that medication by family support specialist. Such practice is discouraged except when the physician, in their clinical judgment, deems that a medical need exists for a medication without regard to pr evious use.
[2019-07-26] MEDS: polyethylene glycoL 3350 17 GM PACKET PO SCH (13:01)
[2019-07-26] MEDS ORDERED: ATORVASTATIN 40 MG TABLET PO SCH (21:00)
[2019-07-26] MEDS ORDERED: MIN OIL/DIMETHICON/COCONUT OIL 92 GM TUBE TOP PRN (22:54)
[2019-07-27] MEDS: SODIUM CHLORIDE FLUSH 0.9% 10 ML SYRINGE IVP SCH ×3 (00:10→16:02)
[2019-07-27] MEDS: CLINDAMYCIN 600 MG/50 ML 50 ML IV SCH ×2 (00:10→05:31)
[2019-07-27] MEDS: LEVOTHYROXINE 88 MCG TABLET PO SCH (05:30)
[2019-07-27] MEDS: SODIUM CHLORIDE 0.9% 1,000 ML IV SCH ×2 (05:31→19:52)
[2019-07-27 05:49] LABS: BASOPHILS # (AUTO) 0.1 10^3/uL (0.0-0.1); BASOPHILS % (AUTO) 1.6 %; EOSINOPHILS # (AUTO) 0.3 10^3/uL (0.0-0.7); EOSINOPHILS % (AUTO) 4.8 %; LYMPHOCYTES # (AUTO) 2.2 10^3/uL (1.5-3.5); LYMPHOCYTES % (AUTO) 33.7 %; MEAN CORPUSCULAR HEMOGLOBIN 30.6 pg (27.0-31.0); MEAN CORPUSCULAR HGB CONC 31.3 g/dL (32.0-36.0); MEAN PLATELET VOLUME 9.5 fL (7.9-10.8); MONOCYTES # (AUTO) 0.9 10^3/uL (0.0-1.0); MONOCYTES % (AUTO) 14.3 %; NEUTROPHILS # (AUTO) 2.9 10^3/uL (1.5-6.6); NEUTROPHILS % (AUTO) 44.5 %; PLT - PLATELET COUNT 232 10^3/uL (130-450); RED BLOOD COUNT 2.94 10^6/uL (4.20-5.40); RED CELL DISTRIBUTION WIDTH 13.3 % (12.0-15.0); WHITE BLOOD COUNT 6.4 x10^3/uL (4.8-10.8)
[2019-07-27 05:58] LABS: CALCIUM 8.3 mg/dL (8.5-10.3); CREATININE 0.8 mg/dL (0.4-1.0)
[2019-07-27] MEDS: cefTRIAXone 1 GM in SODIUM CHLORIDE 0.9% MINIBAG 100 ML IV SCH (08:55)
[2019-07-27] MEDS: LOSARTAN 50 MG TABLET PO SCH (08:56)
[2019-07-27] MEDS: polyethylene glycoL 3350 17 GM PACKET PO SCH (08:56)
[2019-07-27] MEDS: DOCUSATE SODIUM 250 MG CAPSULE PO SCH (08:57)
[2019-07-27] MEDS ORDERED: SENNA 8.6 MG TABLET PO PRN (09:00)
--- NOTE | 2019-07-27 09:26 | PROVIDER PROGRESS NOTE ---
Subjective - Prog Note Date Prog Note Date: 07/27/19 Prog Note Time: 09:24 - Subjective Subjective: Improving mental status per nursing report. Eating without difficulty. Resting comfortably in bed during exam. She has no recollection of our encounter on Friday. She does not recall receiving local anesthesia in the R maxilla. Today she is able to have a coherent conversation, and she is very pleasant. Objective - Vital Signs/Intake & Output Vital Signs: Vital Signs x48h Temp Pulse Resp BP Pulse Ox 07/27/19 08:21 36.7 C 82 16 151/66 H 94 07/27/19 05:00 36.6 C 84 20 151/54 H 95 Intake & Output: Intake & Output 07/24/19 07/25/19 07/26/19 07/27/19 23:59 23:59 23:59 23:59 Intake Total 200 3490.000 1291.667 Output Total 2150 1475 Balance 200 1340.000 -183.333 - Objective ENT: positive: Other (ELEONORA wnl. Significantly less swelling than previous exam. No active drainage.) Neck: positive: Other (Marked decrease in swelling and erythema compared to exam on Friday.) - Lab Results Fish Bones: 07/27/19 05:33 07/27/19 05:33 Other Labs: Lab Results x24hrs 07/27/19 07/27/19 07/27/19 Range/Units 05:33 05:33 05:33 WBC 6.4 (4.8-10.8) x10^3/uL RBC 2.94 L (4.20-5.40) 10^6/uL Hgb 9.0 L (12.0-16.0) g/dL Hct 28.8 L (37.0-47.0) % MCV 98.0 (81.0-99.0) fL MCH 30.6 (27.0-31.0) pg MCHC 31.3 L (32.0-36.0) g/dL RDW 13.3 (12.0-15.0) % Plt Count 232 (130-450) 10^3/uL MPV 9.5 (7.9-10.8) fL Neut # (Auto) 2.9 (1.5-6.6) 10^3/uL Lymph # (Auto) 2.2 (1.5-3.5) 10^3/uL [place] # (Auto) 0.9 (0.0-1.0) 10^3/uL Eos # (Auto) 0.3 (0.0-0.7) 10^3/uL Baso # (Auto) 0.1 (0.0-0.1) 10^3/uL Absolute Nucleated RBC 0.00 x10^3/uL Nucleated RBC % 0.0 /100WBC Sodium 139 (135-145) mmol/L Potassium 3.7 (3.5-5.0) mmol/L Chloride 107 (101-111) mmol/L Carbon Dioxide 23 (21-32) mmol/L Anion Gap 9.0 (6-13) BUN 18 (6-20) mg/dL Creatinine 0.8 (0.4-1.0) mg/dL Estimated GFR (MDRD) 68 L (>89) Glucose 120 H (70-100) mg/dL Calcium 8.3 L (8.5-10.3) mg/dL TSH 1.61 (0.34-5.60) uIU/mL Assessment/Plan - Problem List (1) Facial cellulitis Impression: 89 yo F w/ abscess and cellulitis of the R canine space to the R cervical skin, markedly improved since previous exam. WBC downtrending (never had a leukocytosis during this stay) Improving mental status Markedly improved clinical exam Afebrile overnight P: No operative management during this hospitalization from OMFS standpoint. After d/c she needs to follow up with her dentist to treat the offending tooth. OK for d/c from OMFS standpoint Continue abx after d/c. Cefdinir or Levaquin x 7 additional days for her facial infection. F/u in my office within 1 week after d/c to monitor resolution of the infection. Thank you for including me in the care of Jen. Please call with any questions Hung Lemus, KIMBERLY [phone]
[2019-07-27] MEDS: VANCOMYCIN INJ 1 GM in SODIUM CHLORIDE 0.9% 250 ML IV SCH (10:26)
[2019-07-27] MEDS ORDERED: levoFLOXacin 250 MG TABLET PO SCH (12:00)
[2019-07-27] MEDS: metroNIDAZOLE 250 MG TABLET PO SCH ×2 (13:32→20:56)
--- NOTE | 2019-07-27 16:13 | MRI Report ---
Reason: altered mental status, unintelligible speech. Procedure Date: 07/27/2019 Accession Number: [id number] / [id number] Procedure: MRI - Brain W/O CPT Code: Final Report FULL RESULT: EXAM: MRI BRAIN WITHOUT CONTRAST EXAM DATE: 07/27/2019 03:32 PM. CLINICAL HISTORY: Altered mental status, unintelligible speech. COMPARISON: HEAD W/O STROKE PROTOCOL 07/25/2019 5:59 PM ANGIO HEAD W/WO 07/25/2019 5:59 PM. TECHNIQUE: Multiplanar, multisequence T1-weighted and fluid-sensitive MR sequences of the brain were performed. Sequences optimized for routine evaluation. Other: None. IV Contrast: None. FINDINGS: Brain Volume: Normal for age. Parenchyma/Dura: No mass, acute infarct or hemorrhage. Mild confluent periventricular with diffuse patchy deep white matter T2/FLAIR bright signal is seen in the cerebral hemispheres and brainstem. No cortical signal abnormality. A wedge-shaped focus of cystic encephalomalacia is seen in the posterolateral left cerebellar hemisphere. Ventricles/Cisterns: No hydrocephalus. No abnormal extra-axial fluid collection or hemorrhage. Orbits: Symmetric and unremarkable. Sella Turcica: The pituitary gland, cavernous sinuses, suprasellar cistern and optic chiasm are unremarkable. IAC: Symmetric and unremarkable. Vasculature: Normal signal flow void is seen in the major arterial structures at the skull base. Sinuses: No acute appearing sinus disease. Bones: No focal pathologic appearing marrow signal changes. Other: The visualized nasopharynx and infratemporal fossa are unremarkable. IMPRESSION: 1. No acute intracranial abnormality. No acute infarct, mass, or hemorrhage. 2. Wedge-shaped cystic encephalomalacia in the posterolateral left cerebellar hemisphere. 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 3. Mild white matter signal abnormality in the cerebral hemispheres and brainstem. This is nonspecific. This can be seen secondary to small vessel ischemic change. RADIA
--- NOTE | 2019-07-27 18:13 | PROVIDER PROGRESS NOTE ---
Subjective - Prog Note Date Prog Note Date: 07/27/19 Prog Note Time: 18:15 - Subjective Pt reports feeling: Improved Subjective: By this afternoon, the patient's redness and skin discoloration that extended down her neck from her right face has resolved. She was switched over to oral antibiotics this morning and has not had recurrence of fever or chills.She was seen by oral maxillofacial surgery consult. He is satisfied with her progress and has changed her to oral antibiotics. She does not need to see him in follow-up and he request that she follow-up with her regular dentist. Her MRI did not show any acute changes. She has old encephalomalacia indicating a probable old infarct. Her speech is returned to normal. She is able to speak, follow-up on questions. Physical therapy has seen her and she is contact-guard assist. Current Medications - Current Medications Current Medications: Active Medications Acetaminophen (Tylenol) 650 mg PO Q6HR PRN PRN Reason: Pain or Fever > 38C (100.4F) Docusate Sodium (Colace 250mg Capsule) 250 - 500 mg PO DAILY [facility] Last Admin: 07/27/19 08:57 Dose: 250 mg Sodium Chloride (Normal Saline 0.9%) 1,000 mls @ 100 mls/hr IV .Q10H [facility] Last Infusion: 07/27/19 16:27 Dose: Infused Levofloxacin (Levaquin) 750 mg PO Q2D@0900 [facility] Last Admin: 07/27/19 12:07 Dose: 750 mg Levothyroxine Sodium (Synthroid) 88 mcg PO QDAC [facility] Last Admin: 07/27/19 05:30 Dose: 88 mcg Losartan Potassium (Cozaar) 25 mg PO DAILY [facility] Last Admin: 07/27/19 08:56 Dose: 25 mg Metronidazole (Flagyl) 500 mg PO Q8H [facility] Last Admin: 07/27/19 13:32 Dose: 500 mg Mineral Oil (Cavilon) 1 applic TOP PRN PRN PRN Reason: Skin Care Polyethylene Glycol (Miralax) 17 gm PO DAILY [facility] Last Admin: 07/27/19 08:56 Dose: 17 gm Senna (Senokot) 8.6 - 17.2 mg PO BID PRN PRN Reason: Constipation Stop: 07/30/19 08:59 Sodium Chloride (Normal Saline Flush 0.9%) 10 ml IVP PRN PRN PRN Reason: NEEDED PER PROVIDER ORDERS Sodium Chloride (Normal Saline Flush 0.9%) 10 ml IVP 0100,0900,1700 [facility] Last Admin: 07/27/19 16:02 Dose: 10 ml Famotidine [Pepcid] 20 mg PO DAILY 07/26/19 Levothyroxine Sodium 88 mcg PO QDAC 07/26/19 Losartan Potassium 25 mg PO DAILY 07/26/19 Meloxicam 15 mg PO DAILY 07/26/19 Sertraline [Zoloft] 25 mg PO DAILY 07/26/19 Simvastatin 40 mg PO QPM 07/26/19 Objective - Vital Signs/Intake & Output Reviewed Vital Signs: Yes Vital Signs: Vital Signs x48h Temp Pulse Pulse Resp BP BP Pulse Ox 07/27/19 15:47 36.7 C 76 18 135/51 H 94 07/27/19 13:00 36.8 C 83 16 128/67 96 07/27/19 11:25 95 171/59 H Pulse Ox 07/27/19 15:47 07/27/19 13:00 07/27/19 11:25 95 Intake & Output: Intake & Output 07/24/19 07/25/19 07/26/19 07/27/19 23:59 23:59 23:59 23:59 Intake Total 200 3490.000 3031.667 Output Total 2150 1725 Balance 200 0909.287 4873.667 - Objective General Appearance: positive: No acute distress, Alert Eyes Bilateral: positive: PERRL ENT: positive: Pharynx nml Neck: positive: No JVD. negative: Stiff neck Respiratory: positive: Chest non-tender. negative: Wheezes, Rales, Rhonchi Cardiovascular: positive: Regular rate & rhythm. negative: Gallop/S4, Friction rub Abdomen: positive: Non-tender, No organomegaly, Nml bowel sounds, No distention Skin: positive: Other (The skin of her face is now normal again. The skin of her neck is also almost normal. A very faint tinge of pink down the right side of her neck.) Extremities: positive: Non-tender, No pedal edema Neurologic/Psychiatric: positive: CN's nml (2-12), Motor nml (Except for hesitation, and requiring an occasional cue to use a walker), Disoriented to place, Disoriented to time - Lab Results Fish Bones: 07/27/19 05:33 07/27/19 05:33 Other Labs: Lab Results x24hrs 07/27/19 07/27/19 07/27/19 Range/Units 05:33 05:33 05:33 WBC 6.4 (4.8-10.8) x10^3/uL RBC 2.94 L (4.20-5.40) 10^6/uL Hgb 9.0 L (12.0-16.0) g/dL Hct 28.8 L (37.0-47.0) % MCV 98.0 (81.0-99.0) fL MCH 30.6 (27.0-31.0) pg MCHC 31.3 L (32.0-36.0) g/dL RDW 13.3 (12.0-15.0) % Plt Count 232 (130-450) 10^3/uL MPV 9.5 (7.9-10.8) fL Neut # (Auto) 2.9 (1.5-6.6) 10^3/uL Lymph # (Auto) 2.2 (1.5-3.5) 10^3/uL Bullitt # (Auto) 0.9 (0.0-1.0) 10^3/uL Eos # (Auto) 0.3 (0.0-0.7) 10^3/uL Baso # (Auto) 0.1 (0.0-0.1) 10^3/uL Absolute Nucleated RBC 0.00 x10^3/uL Nucleated RBC % 0.0 /100WBC Sodium 139 (135-145) mmol/L Potassium 3.7 (3.5-5.0) mmol/L Chloride 107 (101-111) mmol/L Carbon Dioxide 23 (21-32) mmol/L Anion Gap 9.0 (6-13) BUN 18 (6-20) mg/dL Creatinine 0.8 (0.4-1.0) mg/dL Estimated GFR (MDRD) 68 L (>89) Glucose 120 H (70-100) mg/dL Calcium 8.3 L (8.5-10.3) mg/dL TSH 1.61 (0.34-5.60) uIU/mL ABX Reporting Has patient been on IV antibiotics over the past 48 hours?: Yes Assessment/Plan - Problem List (1) Dental abscess Impression: Patient had a persistent fever over 38 degrees C, was tachycardic and an infection, dental, facial cellulitis, which was spreading to the neck. She was treated with broad-spectrum antibiotics, iv fluids, [id number] management by Dr Lemus.Treatment consisted of Clinda, Rocephin, vancomycin. White cell count was normal at 8.5 thousand on admission and is trended down to 6.4. Dr. La saw her today and has had good resolution of her symptoms and she is now on oral antibiotics as of today. Plan is for discharge tomorrow if physical therapy feels she is safe to do so. She will continue oral antibiotics until she sees her dentist. (2) Facial cellulitis Assessment/Plan: T-max was 38.3 on July 24. July 25 T-max was 37.3. Today 36.8. Blood cultures on July 24 and July 25 are negative. Cellulitis has receded across her face and down her neck. Stop broad-spectrum IV antibiotics and switch to oral Plan for discharge tomorrow if she remains stable (3) Altered mental status resolved Qualifiers: Altered mental status type: disorientation Qualified Code(s): R41.0 - Disorientation, unspecified Assessment/Plan: She had confusion and garbled speech and been altered in mental status for over 12 hours. Stroke was evaluated for by CT of the head 07/24 and was neg. Fearing that she was having a stroke, an MRI was done today. 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 These results were shared by me with her daughter, Socorro Barrera. (5) Hypertension Assessment/Plan: Her blood pressure med's will be resumed, with hold orders if blood pressure is low. Highest blood pressure today was 171/59. The rest of the day she has been stable. (6) Hypothyroidism Assessment/Plan: TSH is 1.61, no change in medication (7) Hyperlipidemia Assessment/Plan: She is on simvastatin at home. That will be resumed at discharge.
[2019-07-28] MEDS: SODIUM CHLORIDE FLUSH 0.9% 10 ML SYRINGE IVP SCH ×2 (00:07→08:55)
[2019-07-28 05:25] LABS: BASOPHILS # (AUTO) 0.1 10^3/uL (0.0-0.1); BASOPHILS % (AUTO) 1.4 %; EOSINOPHILS # (AUTO) 0.6 10^3/uL (0.0-0.7); HGB - HEMOGLOBIN 9.4 g/dL (12.0-16.0); LYMPHOCYTES # (AUTO) 1.6 10^3/uL (1.5-3.5); LYMPHOCYTES % (AUTO) 21.3 %; MEAN CORPUSCULAR HEMOGLOBIN 30.5 pg (27.0-31.0); MEAN CORPUSCULAR VOLUME 98.4 fL (81.0-99.0); MEAN PLATELET VOLUME 10.1 fL (7.9-10.8); MONOCYTES # (AUTO) 0.9 10^3/uL (0.0-1.0); NEUTROPHILS # (AUTO) 4.3 10^3/uL (1.5-6.6); NEUTROPHILS % (AUTO) 56.3 %; PLT - PLATELET COUNT 242 10^3/uL (130-450); RED BLOOD COUNT 3.08 10^6/uL (4.20-5.40); RED CELL DISTRIBUTION WIDTH 13.3 % (12.0-15.0); WHITE BLOOD COUNT 7.7 x10^3/uL (4.8-10.8)
[2019-07-28] MEDS: metroNIDAZOLE 250 MG TABLET PO SCH (05:31)
[2019-07-28] MEDS: LEVOTHYROXINE 88 MCG TABLET PO SCH (05:32)
[2019-07-28 05:33] LABS: CALCIUM 8.7 mg/dL (8.5-10.3); CREATININE 0.8 mg/dL (0.4-1.0)
[2019-07-28] MEDS: DOCUSATE SODIUM 250 MG CAPSULE PO SCH (07:40)
[2019-07-28] MEDS: polyethylene glycoL 3350 17 GM PACKET PO SCH (07:41)
--- NOTE | 2019-07-28 08:28 | Discharge Plan ---
Discharge Plan Problem Reviewed?: Yes Disposition: Home, Self Care Condition: Stable Prescriptions: levoFLOXacin [Levaquin] 750 mg PO Q2D@0900 #12 tablet Diet: Regular Activity Restrictions: Activity as Tolerated Shower Restrictions: No Driving Restrictions: No Health Concerns: You presented to our hospital with complaints of facial redness, pain, and heat. You had already been treated for a dental infection by your dentist and you were on clindamycin. We diagnosed you as a severe facial cellulitis. Treatment was with IV antibiotics. We also consulted with oral maxillofacial surgeon, Dr. Hung Lemus. With the treatment, your white cell count came down. Confusion that was present on admission had resolved. Your speech was initially unintelligible and became normal. We were worried about a stroke and did an MRI of your brain. You did not have a new stroke. However you do have evidence of an old stroke in the left back of brain region. It is unclear when you had that stroke. It could have been a month ago or 10 years ago. Plan of Treatment: Dr. Lemus feel that you have recovered successfully enough to go home. He would like you to stay on Levaquin to treat the infection. Because of your age and kidney function, Levaquin is recommended every other day. Dr. Lemus would also like you to follow-up with your own dentist in the next few days. There is no specific treatment for your old stroke. In patients who have had a recent stroke, we put them on a cholesterol pill as well as a daily aspirin. At 89 years of age, the aspirin may be contraindicated because of its side effects of bleeding, causing ulcers, and causing kidney disease. Please discuss this with your primary care provider. Care Goals: To complete treatment for facial skin infection and dental infection. Assessment: Treatment and goals discussed with the patient on the day of discharge, and discussed with her daughter the day before discharge. Patient understands and agrees to follow through. No Smoking: If you smoke, Please STOP! Call for help. Follow-up with: Selina Pressley ARNP, INTERNAL CONTROLS SPECIALIST-C [Primary Care Provider] -
[2019-07-28] MEDS: LOSARTAN 50 MG TABLET PO SCH (08:55)
[2019-07-28 11:24] VITALS: BP 126/98
--- NOTE | 2019-07-28 18:15 | Discharge Plan ---
Discharge Plan Problem Reviewed?: Yes Disposition: Home, Self Care Condition: Stable Prescriptions: levoFLOXacin [Levaquin] 750 mg PO Q2D@0900 #12 tablet Activity Restrictions: Activity as Tolerated Shower Restrictions: No Driving Restrictions: No Instruction Topics: Levofloxacin tablets, Dental Abscess, COVID-19 [facility], COVID-19 [facility] Department Statement Health Concerns: You presented to our hospital with complaints of facial redness, pain, and heat. You had already been treated for a dental infection by your dentist and you were on clindamycin. We diagnosed you as a severe facial cellulitis. Treatment was with IV antibiotics. We also consulted with oral maxillofacial surgeon, Dr. Hung Lemus. With the treatment, your white cell count came down. Confusion that was present on admission had resolved. Your speech was initially unintelligible and became normal. We were worried about a stroke and did an MRI of your brain. You did not have a new stroke. However you do have evidence of an old stroke in the left back of brain region. It is unclear when you had that stroke. It could have been a month ago or 10 years ago. Plan of Treatment: Dr. Lemus feel that you have recovered successfully enough to go home. He would like you to stay on Levaquin to treat the infection. Because of your age and kidney function, Levaquin is recommended every other day. Dr. Lemus would also like you to follow-up with your own dentist in the next few days. There is no specific treatment for your old stroke. In patients who have had a recent stroke, we put them on a cholesterol pill as well as a daily aspirin. At 89 years of age, the aspirin may be contraindicated because of its side effects of bleeding, causing ulcers, and causing kidney disease. Please discuss this with your primary care provider. Care Goals: To complete treatment for facial skin infection and dental infection. Assessment: Treatment and goals discussed with the patient on the day of discharge, and discussed with her daughter the day before discharge. Patient understands and agrees to follow through. No Smoking: If you smoke, Please STOP! Call for help. Follow-up with: Selina Pressley ARNP, MANAGER STYLIST-C [Primary Care Provider] -
--- NOTE | 2019-07-28 18:17 | DISCHARGE SUMMARY ---
"Discharge Summary Admit Date: 07/25/19 Discharge Date: 07/28/19 Discharging Provider: Merlyn Thompson MD Primary Care Provider: AMANDA Galindo Code Status: Do Not Attempt Resuscitation Condition at Discharge: Stable Discharge Disposition: Home Health Service - DIAGNOSES Discharge Diagnoses with Status of Each Condition: 1. Dental abscess 2. Facial cellulitis 3. Moderate dementia 4. Altered mental status 5. Hypertension 6. Hyperlipidemia 7. Hypothyroidism - HPI History of Present Illness: Patient is an 89-year-old female who was brought to the ED for altered mental status. The history was mainly obtained from her daughter. Her daughter explains that around 4:30 PM this afternoon she received a call from the patient. During the conversation her words were not making sense. She was babbling and appeared confused. It also seemed the patient was not understanding what her daughter was saying. Upon presentation to the ED the patient had redness on the right side of her face which extended down to the clavicle on the right. She had seen her dentist Rosangela Stubbs on Friday and was prescribed clindamycin for a potential dental abscess. There was nothing drainable at the time. By the time the patient presented to the ED she had taken a total of 4 doses of the clindamycin. On Friday the redness was localized to the right jaw only. Despite being on clindamycin the redness has progressed down to her clavicle on the right side. Though she is fully awake, alert and appears comfortable, she is not able to follow any commands. She is able to tell me her name but does not seem to recognize her daughter at bedside. Work-up in the ED included a CT of the head and neck which suggested a dental abscess. Dr. Lemus with oral surgery was consulted and would see the patient for possible drainage. As a result of her presentation she is being admitted for further work-up and treatment. 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 Head CT with no parenchymal hemorrhage, no evidence of mass, midline shift shift, or CT findings of acute infarction. Generalized age-related cortical atrophic changes. 2. Head CT angiogram without evidence of high-grade stenosis, large vessel occlusion, acute dissection, aneurysm or vascular malformation. She is atherosclerosis of the origin of the right subclavian. Focal atherosclerosis V4 segments of the vertebral arteries bilaterally. Proximal V2 segment of the right vertebral artery is tortuous and somewhat irregular in contour. Neck CT angiogram with no evidence of high-grade stenosis, large vessel occlusion, acute dissection. 3. Facial bone CT with rim-enhancing hypodense collection adjacent the right alveolar ridge measuring 19 x 4.7 x 13.6 mm concerning for soft tissue abscess. Mild overlying soft tissue edema. Maxillary T6 and 11 bilateral impacted. Periapical lucency associated with maxillary tooth #5 concerning for periapical abscess. 3. Brain MRI without acute intracranial abnormality. No acute infarct, mass, or hemorrhage. She does have an old infarct that is a wedge-shaped cystic encephalomalacia in the posterior lateral cerebellar hemisphere. Changes compatible with small vessel ischemic changes seen. 4. Blood cultures July 24- and July 25-. - HOSPITAL COURSE Hospital Course: She was seen by Dr. Lemus where he attempted a bedside incision and drainage. She was unable to tolerate the procedure and kept on withdrawing her head because she was confused about what was happening. At that point in time the abscess was already spontaneously draining. Dr. Lemus recommended monitoring her response to IV antibiotics. If she improved she could follow-up with Dr. Augustin Alicea. If she did not improve he recommended changing her antibiotics to third-generation generation cephalosporin or to Levaquin and he would recheck up on her. 2 days later he found her to be improving her mental status. Her facial cellulitis that improved tremendously. White cell count was now down. Marked decrease swelling was noted in the face and neck and significantly less erythema. We had marked her face and neck with a blue marker to delineate the extent of her cellulitis. By the third day there was no redness and all that was left with line of the blue marker. Her mental status was felt to be back at baseline. Blood pressure medicines have been resumed for her high blood pressure. TSH was checked for her hypothyroidism and was normal.Change in mental status was attributed to her infection. Neurological work-up for stroke was negative. I did share with her daughter Ms. Barrera at [phone] that she had had an old stroke. Age-indeterminate. She was discharged in stable condition with a temperature of 36.7, pulse 70, blood pressure 126/98. Respirations 18 and 95% on room air. She is 5 feet 1 inches tall and weighs 64 kg. She was in no acute distress, did not have a stiff neck. All of her redness along her neck and face had resolved and there was only subtle soft tissue swelling along the right temporomandibular joint. Lungs were clear. Regular rate and rhythm. A benign abdomen. And extremities without pedal edema. She was disoriented to place, time and at times had to be reminded that she was here because of a dental abscess. Blood cultures were negative. She was evaluated by physical therapy because she lives alone in a single-story home. Walk-in shower. No ambulatory devices. Physical therapy found her to be needing only standby assist with transferring, she was using a front wheel walker with this, and was independent. She demonstrated good upper extremity strength for her. Clinical Pharmacy Coordinator strength was poor because of her arthritis. They did feel that she would benefit from a walker at home to promote independence. They also recommended she be seen by occupational therapy to make sure that she was safe, would benefit from a shower chair and grab bars. As such home health was ordered. Greater than 30 minutes was spent coordinating discharge. I have asked her to see her primary care provider in [facility], Selina Pressley. I explained to her daughter that she need to be seen in follow-up by Dr. Alicea and she was continued on her Levaquin to complete her course of antibiotic therapy. - ALLERGIES Allergies/Adverse Reactions: Allergies Allergy/AdvReac Type Severity Reaction Status Date / Time Penicillins Allergy Unknown Verified 07/25/19 17:32 - MEDICATIONS Home Medications: Ambulatory Orders Medication Instructions Recorded Confirmed Famotidine [Pepcid] 20 mg PO DAILY 07/26/19 07/26/19 Levothyroxine Sodium 88 mcg PO QDAC 07/26/19 07/26/19 Losartan Potassium 25 mg PO DAILY 07/26/19 07/26/19 Meloxicam 15 mg PO DAILY 07/26/19 07/26/19 Sertraline [Zoloft] 25 mg PO DAILY 07/26/19 07/26/19 Simvastatin 40 mg PO QPM 07/26/19 07/26/19 levoFLOXacin [Levaquin] 750 mg PO Q2D@0900 #12 tablet 07/28/19 - LABS Result Diagrams: 07/28/19 04:30 07/28/19 04:30"
== END 2019-07-28 13:05 | disposition home health service (06) | DRG 157 ==
LOC: ED 17:28 → MS2 21:05
PROVIDERS: ADMIT Internal Medicine; ATTEND Specialist
DX: K12.2 Cellulitis and abscess of mouth (principal); G93.41 Metabolic encephalopathy; R41.0 Disorientation, unspecified; N30.00 Acute cystitis without hematuria; K04.7 Periapical abscess without sinus; E78.00 Pure hypercholesterolemia, unspecified; R29.702 NIHSS score 2; F03.90 Unspecified dementia, unspecified severity, without behavioral disturbance, psychotic disturbance, mood disturbance, and anxiety; I10 Essential (primary) hypertension; E78.5 Hyperlipidemia, unspecified; E03.9 Hypothyroidism, unspecified; G47.30 Sleep apnea, unspecified; E11.9 Type 2 diabetes mellitus without complications; K21.9 Gastro-esophageal reflux disease without esophagitis; M06.9 Rheumatoid arthritis, unspecified; I69.398 Other sequelae of cerebral infarction; G93.89 Other specified disorders of brain
CPT/HCPCS: 36415; 70487; 70496; 70498; 70551; 80048; 80053; 80061; 81001; 83036; 83605; 83690; 84443; 85025; 85610; 85730; 87040; 93005; 96374; 97161; 97166; 99285; A9270; J3370; Q9967; 70450; 80306; 80307; 80320; 80329; 81003; 83721; 87086